=== PATIENT | male | born 1960 | race American Indian/Alaskan Native ===

== ENCOUNTER 2017-03-18 13:23 | Inpatient (IN) | payer OTHER ==
--- NOTE | 2017-03-18 13:41 | ED PDOC ---
HPI: Chest Pain Time Seen by Provider: 03/18/17 13:27 Chief Complaint (Nursing): Chest Pain History Per: Patient Onset/Duration Of Symptoms: Days (1) Current Symptoms Are (Timing): Still Present Severity: Mild Pain Scale Rating Of: 2 Associated Symptoms: Dyspnea Exacerbating Factors: Deep Breathing Alleviating Factors: None Additional Complaint(s): Substernal chest pain assoc with SOB since this AM. Nonradiating. Pain worse on inspiration. Denies cough or fever. Past Medical History Vital Signs: Last Vital Signs Temp 96.5 F L 03/18/17 17:47 Pulse 63 03/18/17 17:47 Resp 18 03/18/17 17:47 BP 137/88 03/18/17 17:47 Pulse Ox 100 03/18/17 18:57 - Medical History PMH: HTN - Family History Family History: States: Unknown Family Hx - Home Medications Home Medications: Ambulatory Orders Medication Instructions Recorded Ibuprofen [Motrin Tab] 600 mg PO Q8H PRN 03/18/17 Lisinopril [Zestril] 40 mg PO DAILY 03/18/17 NIFEdipine ER [Procardia XL] 30 mg PO DAILY 03/18/17 - Allergies Allergies/Adverse Reactions: Allergies Allergy/AdvReac Type Severity Reaction Status Date / Time No Known Allergies Allergy Verified 03/18/17 13:26 Review of Systems ROS Statement: Except As Marked, All Systems Reviewed And Found Negative Cardiovascular: Positive for: Chest Pain Respiratory: Positive for: Shortness of Breath Physical Exam - Reviewed Nursing Documentation Reviewed: Yes Vital Signs Reviewed: Yes - Physical Exam Appears: Positive for: Non-toxic, No Acute Distress Head Exam: Positive for: ATRAUMATIC, NORMAL INSPECTION, NORMOCEPHALIC Skin: Positive for: Normal Color, Warm, DRY Eye Exam: Positive for: EOMI, Normal appearance, PERRL ENT: Positive for: Normal ENT Inspection Neck: Positive for: Normal, Painless ROM Cardiovascular/Chest: Positive for: Regular Rate, Rhythm Respiratory: Positive for: CNT, Normal Breath Sounds Gastrointestinal/Abdominal: Positive for: Normal Exam, Bowel Sounds, Soft Back: Positive for: Normal Inspection Extremity: Positive for: Normal ROM Neurologic/Psych: Positive for: Alert, Oriented - Laboratory Results Result Diagrams: 03/18/17 14:00 03/18/17 14:00 - ECG O2 Sat by Pulse Oximetry: 100 Medical Decision Making Medical Decision Making: Time: 1444 --CXR FINDINGS: Examination limited by habitus. LUNGS: No focal consolidation. Please note that chest x-ray has limited sensitivity for the detection of pulmonary masses. PLEURA: No significant pleural effusion identified. No definite pneumothorax . CARDIOVASCULAR: Heart size appears within normal limits. Ectatic aorta. OSSEOUS STRUCTURES: No acute osseous abnormality identified. VISUALIZED UPPER ABDOMEN: Unremarkable. OTHER FINDINGS: None. IMPRESSION: No focal consolidation, significant pleural effusion, or definite pneumothorax identified. --Medically stable for psychiatric admission Time: 1899 --Patient signed out to Dr. Lo Luna. Pending labs and re-evaluation. Disposition - Clinical Impression Clinical Impression: Depression - Patient ED Disposition Is Patient to be Admitted: Yes - Disposition Disposition Time: 17:07 Condition: FAIR Forms: Oculus VR (Nepali) - Pt Status Changed To: Hospital Disposition Of: Inpatient - Admit Certification Admit to Inpatient:: After my assessment, the patient will require hospitalization for at least two midnights. This is because of the severity of symptoms shown, intensity of services needed, and/or the medical risk in this patient being treated as an outpatient. - POA Present On Arrival: None
[2017-03-18 14:09] LABS: BASO # 0.1 K/uL (0.0-0.2); BASO % 0.6 % (0.0-2.0); EOS # 0.1 K/uL (0.0-0.7); EOS % 0.9 % (0.0-4.0); HEMATOCRIT 40.7 % (35.0-51.0); LYMPH # 2.9 K/uL (1.0-4.3); LYMPH % 25.9 % (20.0-40.0); MEAN CELL VOLUME 74.4 fl (80.0-94.0); MEAN CORPUSCULAR HEMOGLOBIN 23.3 pg (27.0-31.0); MEAN CORPUSCULAR HGB CONC 31.4 g/dL (33.0-37.0); MEAN PLATELET VOLUME 8.6 fl (7.2-11.7); MONO # 0.7 K/uL (0.0-0.8); MONO % 6.2 % (0.0-10.0); NEUT # 7.5 K/uL (1.8-7.0); NEUT % 66.4 % (50.0-75.0); RED CELL DISTRIBUTION WIDTH 16.3 % (11.5-14.5); WHITE BLOOD COUNT 11.3 K/uL (4.8-10.8)
[2017-03-18 14:21] LABS: ALB/GLOB RATIO 1.2 (1.0-2.1); ALKALINE PHOSPHATASE 110 U/L (38-126); ALT/SGPT 63 U/L (21-72); AST/SGOT 38 U/L (17-59); BILIRUBIN,TOTAL 0.8 mg/dl (0.2-1.3); BLOOD UREA NITROGEN 20 mg/dl (9-20); CALCIUM 9.4 mg/dL (8.4-10.2); CARBON DIOXIDE 21 mmol/L (22-30); CHLORIDE 110 mmol/L (98-107); GFR AFRICAN-AMERICAN > 60; GLUCOSE,RANDOM 96 mg/dL (75-110); SODIUM 145 mmol/l (132-148); TOTAL PROTEIN 7.9 G/DL (6.3-8.2)
[2017-03-18 14:32] LABS: POTASSIUM 4.1 MMOL/L (3.6-5.0)
--- NOTE | 2017-03-18 14:45 | RAD ---
HISTORY: chest pain COMPARISON: Chest x-ray performed 01/31/13 TECHNIQUE: Chest PA and lateral FINDINGS: Examination limited by habitus. LUNGS: No focal consolidation. Please note that chest x-ray has limited sensitivity for the detection of pulmonary masses. PLEURA: No significant pleural effusion identified. No definite pneumothorax . CARDIOVASCULAR: Heart size appears within normal limits. Ectatic aorta. OSSEOUS STRUCTURES: No acute osseous abnormality identified. VISUALIZED UPPER ABDOMEN: Unremarkable. OTHER FINDINGS: None. IMPRESSION: No focal consolidation, significant pleural effusion, or definite pneumothorax identified.
[2017-03-18] MEDS ORDERED: Alum-Mag Hydrox-Simethicone Susp (30 mL) PO PRN (20:47)
[2017-03-18] MEDS ORDERED: Magnesium Hydroxide Susp 30 ml UD PO PRN (20:47)
[2017-03-18] MEDS ORDERED: DiphenhydrAMINE 50 mg/ml Inj IM PRN (20:47)
--- NOTE | 2017-03-18 22:33 | PCM.BM ---
<Tia Moreland - Last Filed: 03/18/17 22:30> Treatment Plan Problems - Problems identified on initial assessmt Anxiety Date Initiated: 03/18/17 Time Initiated: 22:31 Assessment reference: NA Status: Active Hoplessness/Helplessness Date Initiated: 03/18/17 Time Initiated: 22:33 Assessment reference: NA Status: Active Altered Sleep Patterns Date Initiated: 03/18/17 Time Initiated: 22:33 Assessment reference: NA Status: Active Treatment assets and liabiliti Patient Assests: adapts well, cooperative, self-reliant, ADL independent, negotiates basic needs Patient Liabilities: live alone, poor support system - Milieu Protocol Maintain good personal hygiene: daily Encourage regular showers, daily Remind patient to perform daily oral care Conduct patient checks and document Observation sheet: Q15 minutes Maintain personal safety: every shift Educate patient to report safety concerns to staff, every shift Monitor environment for contraband/sharps Medication safety: Monitor for expected outcome, potential side effects: every shift, Assess barriers to learning: every shift, Assess readiness for medication education: daily <Rufina Jamison - Last Filed: 03/21/17 15:56> Treatment assets and liabiliti Patient Assests: adapts well, cooperative, self-reliant, ADL independent, physically healthy, negotiates basic needs, good past tx response Patient Liabilities: relationship conflicts Family Contact Family involvement: Family/SO is involved Family contact: Other (Patient currently not agreeable to signing consent for family and has requested "time to think" about who he would like involved in his treatment. [employer] Officer provided psychoeducation regarding benefits of family involvment.) - Outside Agency Agency 1 Care involvment: Other Agency contact name: [facility]- Patient reports not wanting to see a different psychiatrist every time patient goes to a walk-in clinic in [facility] to get a refill. Patient requesting referral to [facility] for outpatient mental health services. - Goals for Treatment Patient goals for treatment: Patient continues to report symptoms of depression and anxiety but to a lesser degree than upon admission. Patient denies current SI/HI and is able to contract for saftey on 3NP. Patient will continue stabilization on 3NP through medication management and group/supportive therapy. Patient to be encouraged to attend 3-6 groups/weekly to develop appropriate coping skills, improve insight, promote self-esteem, compliance and safety. Discharge/Continuing Care - Education Needs Education Needs: Patient Medication, Patient Diagnosis/Disease Process, Patient Coping Skills, Patient Community resources, Patient Aftercare Safety Plan - Discharge Discharge Criteria: Tolerates medication w/o severe side effects, Free of Suicidal thoughts, Free of paranoid thoughts, Normal sleep pattern, Ability to care for self, Reduction of target symptoms Discharge to:: Home - Treatment Team Participation Patient/Family/SO Statement: 03/21/17 15:55 Patient continues to presents as anxious and depressed but reports improvement in symptoms since admission. Patient tangential at times but is refocused easily. Patient reports being motivated for tx.
[2017-03-19 08:56] LABS: CHOLESTEROL 209 mg/dL (0-199)
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
[2017-03-19] MEDS: NIFEdipine 30 mg ER Tab PO SCH (10:02)
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
--- NOTE | 2017-03-19 13:25 | CARD ---
APPROVED REPORT EKG Measurement Heart [id number] <Conclusion> Sinus rhythm with premature atrial complexes with aberrant conduction Possible Left atrial enlargement Left ventricular hypertrophy Abnormal ECG
[2017-03-20] MEDS: NIFEdipine 30 mg ER Tab PO SCH (08:48)
--- NOTE | 2017-03-20 18:52 | PCM.PYCHPN ---
Psychiatric Progress Note - Psychiatric Progress Note Patient seen today, length of contact: pt seen and evaluated Patient Chief Complaint: pt has remained depressed and anxious but reports meds helping him and sleeps better with remeron.no side efects to meds . Medication Change: No Medical Record Reviewed: Yes Mental Status Examination - Cognitive Function Orientation: Person Memory: Intact Attention: Poor Concentration: Poor Association: WNL Fund of Knowledge: WNL - Mood Mood: Depressed - Affect Affect: Constricted - Speech Speech: Appropriate - Formal Thought Process Formal Thought Process: No Impairment - Suicidal Ideation Suicidal Ideation: No - Homicidal Ideation Homicidal Ideation: No Goal/Treatment Plan - Goal/Treatment Plan Progress Toward Problem(s) and Goals/Treatment Plan: Will continue the current meds regimen and will adjust the meds to stabilize the pt will engage pt in therapy and groups. Hospitalist consult.
[2017-03-21] MEDS: NIFEdipine 30 mg ER Tab PO SCH (08:55)
--- NOTE | 2017-03-21 11:57 | PCM.PYCHPN ---
Psychiatric Progress Note - Psychiatric Progress Note Patient seen today, length of contact: in treatment team Patient Chief Complaint: i am anxious Problems Identified/Issues Discussed: pt reports he feels anxious. he reports thoughts are "constantly going" reports some relief from being in the hospital and knows he needs to stay in treatment. states he is worried about thoughts to harm self when not in the hospital. denies side effects from medications. Medication Change: Yes Medical Record Reviewed: Yes Mental Status Examination - Cognitive Function Orientation: Person Memory: Intact Attention: WNL Concentration: WNL Association: WNL Fund of Knowledge: WN Decription of patient's judgement and insights: fair - Mood Mood: Depressed, Anxious - Affect Affect: Constricted - Speech Speech: Pressured - Formal Thought Process Formal Thought Process: No Impairment Psychotic Thoughts and Behaviors: denies any a/v hallucinations - Suicidal Ideation Suicidal Ideation: Yes Plan: passive thoughts currently - Homicidal Ideation Homicidal Ideation: No Goal/Treatment Plan - Goal/Treatment Plan Need for Continued Stay: Remain at risks for inpatient hospitalization, Severe functional impairment Progress Toward Problem(s) and Goals/Treatment Plan: bipolar disorder history of substance abuse continue with current medications- will increase neurontin dose disposition planning Estimated Date of D/C: 03/25/17
[2017-03-21] MEDS: NIFEdipine 60 mg ER Tab PO SCH (16:04)
[2017-03-22] MEDS: NIFEdipine 60 mg ER Tab PO SCH (08:52)
--- NOTE | 2017-03-22 09:39 | PCM.PYCHPN ---
Psychiatric Progress Note - Psychiatric Progress Note Patient seen today, length of contact: discussed with team Patient Chief Complaint: i am feeling better, but that makes me anxious Problems Identified/Issues Discussed: pt reports he is feeling better and more hopeful. pt is denying medication side effects. he is anticipating going to a family therapy appointment with his gf on tuesday. he reports improved sleep. Medication Change: Yes (inc. neurontin) Medical Record Reviewed: Yes Mental Status Examination - Cognitive Function Orientation: Person Memory: Intact Attention: WNL Concentration: WNL Association: WNL Fund of Knowledge: WN Decription of patient's judgement and insights: fair - Mood Mood: Depressed, Anxious - Affect Affect: Constricted - Speech Speech: Appropriate - Formal Thought Process Formal Thought Process: No Impairment Psychotic Thoughts and Behaviors: denies any a/v hallucinations - Suicidal Ideation Suicidal Ideation: No Plan: denies si/hi today - Homicidal Ideation Homicidal Ideation: No Goal/Treatment Plan - Goal/Treatment Plan Need for Continued Stay: Remain at risks for inpatient hospitalization, Severe functional impairment Progress Toward Problem(s) and Goals/Treatment Plan: bipolar disorder history of substance abuse continue with current medications- will increase neurontin dose to 800mg tid disposition planning Estimated Date of D/C: 03/25/17
[2017-03-23] MEDS: NIFEdipine 60 mg ER Tab PO SCH (08:57)
--- NOTE | 2017-03-23 13:41 | PCM.PYCHPN ---
Psychiatric Progress Note - Psychiatric Progress Note Patient seen today, length of contact: discussed with team Patient Chief Complaint: i am getting there Problems Identified/Issues Discussed: pt attending groups. remains anxious and hesitant to participate. denies medication side effects. Medication Change: No ( ) Medical Record Reviewed: Yes Mental Status Examination - Cognitive Function Orientation: Person Memory: Intact Attention: WNL Concentration: WNL Association: WNL Fund of Knowledge: WN Decription of patient's judgement and insights: fair - Mood Mood: Depressed, Anxious - Affect Affect: Constricted - Speech Speech: Appropriate - Formal Thought Process Formal Thought Process: No Impairment Psychotic Thoughts and Behaviors: denies any a/v hallucinations - Suicidal Ideation Suicidal Ideation: No - Homicidal Ideation Homicidal Ideation: No Goal/Treatment Plan - Goal/Treatment Plan Need for Continued Stay: Remain at risks for inpatient hospitalization, Severe functional impairment Progress Toward Problem(s) and Goals/Treatment Plan: bipolar disorder history of substance abuse continue with current medications disposition planning Estimated Date of D/C: 03/25/17
--- NOTE | 2017-03-24 08:49 | PCM.PYCHPN ---
Psychiatric Progress Note - Psychiatric Progress Note Patient seen today, length of contact: discussed with team Patient Chief Complaint: i just need ambien for tonight Problems Identified/Issues Discussed: pt attending groups. states his depression is improving. reports he has some trouble sleeping while in the hospital and ambien helps. he is anticipating discharge tomorrow. Medication Change: No ( ) Medical Record Reviewed: Yes Mental Status Examination - Cognitive Function Orientation: Person Memory: Intact Attention: WNL Concentration: WNL Association: WNL Fund of Knowledge: WN Decription of patient's judgement and insights: fair - Mood Mood: Depressed, Anxious - Affect Affect: Constricted - Speech Speech: Appropriate - Formal Thought Process Formal Thought Process: No Impairment Psychotic Thoughts and Behaviors: denies any a/v hallucinations - Suicidal Ideation Suicidal Ideation: No - Homicidal Ideation Homicidal Ideation: No Goal/Treatment Plan - Goal/Treatment Plan Need for Continued Stay: Remain at risks for inpatient hospitalization, Severe functional impairment Progress Toward Problem(s) and Goals/Treatment Plan: bipolar disorder history of substance abuse continue with current medications and add ambien tonight disposition planning Estimated Date of D/C: 03/25/17
[2017-03-24] MEDS: NIFEdipine 60 mg ER Tab PO SCH (09:09)
[2017-03-25] MEDS: NIFEdipine 60 mg ER Tab PO SCH (08:41)
[2017-03-25 08:47] VITALS: BP 156/72; PULSE 68
[2017-03-25 09:10] VITALS: RESP 16; TEMP 97.2; O2SAT 100
--- NOTE | 2017-03-25 09:28 | PCM.PYCHDC ---
Mental Status Examination - Mental Status Examination Orientation: Person, Place, Situation, Time Memory: Intact Mood: Anxious (regarding discharge) Affect: Constricted Speech: Appropriate Attention: WNL Concentration: WNL Association: WNL Fund of Knowledge: WNL Formal Thought Process: No Impairment Description of patient's judgement and insight: fair Psychotic Thoughts and Behaviors: denies any a/v hallucinations Suicidal Ideation: No Current Homicidal Ideation?: No Plan: pt denies any suicidal or homicidal thoughts Discharge Summary - Discharge Note Reason for Hospitalization: depression, suicidal thoughts, anxiety Psychiatric History (includes Medical, Family, Personal Hx): for depression, Consultations:: List each consultation separately and include: 1. Reason for request. 2. Findings. 3. Follow-up Consultations: seen by the hospitalist Summary of Hospital Course include:: 1. Description of specific treatment plan utilized for patients during their course of treatmen. 2. Summarize the time- course for resolution of acute symptoms and/or regressed behaviors. 3. Describe issues identified and worked on during hospitalization. 4. Describe medication utilized. 5. Describe medical problems identified and treated. 6. Reassessment of suicide risk Summary of Hospital Course: pt [facility] and oriented to the unit. pt was placed on routine safety protocols. pt was started on his previous medications. he tolerated the medications. his mood improved. he was motivated to leave the hospital to make his couples therapy appointment. he was making efforts to participate in groups. he was denying any medication side effects. at the time of discharge he was denying suicidal and homicidal thoughts/plans or intent. - Final Diagnosis (DSM 5) Condition upon Discharge: FAIR DSM 5: bipolar disorder, depressed Disposition: HOME/ ROUTINE Follow-up Treatment Plan: continue current medications follow up with aftercare as directed take medications as prescribed do not use alcohol, tobacco or other illicit substances call 911 if any suicidal or homicidal thoughts Prescriptions/Medication Reconciliation: Allopurinol [Zyloprim] 100 mg PO HS #15 tab clonazePAM [Klonopin] 1 mg PO BID #30 tab Gabapentin [Neurontin] 800 mg PO TID #45 tab Lisinopril [Zestril] 40 mg PO DAILY #15 tab Mirtazapine [Remeron] 30 mg PO HS #15 tab NIFEdipine ER [Procardia XL] 60 mg PO DAILY #15 ter - Smoking Cessation Smoking Cessation Medication prescribed: No - Antipsychotic Medications Pt discharged on 2 or more routine antipsychotic medications: No
== END 2017-03-25 12:08 | disposition home or self-care (01) | DRG 430 ==
LOC: H.ER 13:23 → H.ERHOLD 19:17 → H.PSYCH 21:00
PROVIDERS: ADMIT Psychiatry & Neurology Psychiatry; ATTEND Psychiatry & Neurology Psychiatry
PROC: GZ51ZZZ Individual Psychotherapy, Behavioral (ICD-10-PCS; 2017-03-18)
PROC: GZHZZZZ Group Psychotherapy (ICD-10-PCS; principal; 2017-03-22)
DX: F33.2 Major depressive disorder, recurrent severe without psychotic features (principal); R45.851 Suicidal ideations; I10 Essential (primary) hypertension; E66.9 Obesity, unspecified; E78.00 Pure hypercholesterolemia, unspecified; F31.9 Bipolar disorder, unspecified; F41.0 Panic disorder [episodic paroxysmal anxiety]; G89.29 Other chronic pain; M54.9 Dorsalgia, unspecified; L25.9 Unspecified contact dermatitis, unspecified cause; Z79.899 Other long term (current) drug therapy; Z87.891 Personal history of nicotine dependence; F41.8 Other specified anxiety disorders; L29.9 Pruritus, unspecified; R21 Rash and other nonspecific skin eruption; R06.02 Shortness of breath; R07.2 Precordial pain